=== PATIENT | female | born 1975 | race African-American/Black ===

== ENCOUNTER 2021-02-27 09:11 | Emergency (ER) | payer OTHER ==
[~2021-02-27] VITALS: Ht 167.6 cm; Wt 75.0 kg
[2021-02-27] MEDS ORDERED: ONDANSETRON HCL 4MG/2ML INJ IV STA (09:27)
[2021-02-27] MEDS ORDERED: KETOROLAC 30MG/ML VIAL IV STA (09:27)
[2021-02-27] MEDS ORDERED: SODIUM CHLORIDE 0.9% 1,000 ML IV ONE (09:30)
[2021-02-27 09:51] LABS: HEMOGLOBIN. 9.7 g/dL (12.0-16.0); MEAN CORPUSCULAR HEMOGLOBIN 24.4 pg (28.0-32.0); MEAN CORPUSCULAR VOLUME 77.9 fL (81.0-99.0); MEAN PLATELET VOLUME 7.4 fl (7.4-10.4); PLATELET 598 x1000/uL (130-400); RED BLOOD CELL COUNT 3.98 mill/uL (4.2-5.4)
[2021-02-27 09:56] LABS: CHLORIDE 103 mEq/L (98-107)
[2021-02-27 10:11] LABS: ETHANOL BLOOD < 10 mg/dL
[2021-02-27 10:31] LABS: HCG SCREEN NEGATIVE; NUCLEATED RED BLOOD CELLS 1 /100 WBC; PLATELET ESTIMATE INCREASED
[2021-02-27 12:00] VITALS: BP 146/62
[2021-02-27 12:16] LABS: CLARITY URINE CLOUDY (CLEAR); COLOR URINE DARK YELLOW (YELLOW); KETONES URINE 3+ (NEGATIVE); LEUKOCYTE ESTERASE URINE 1+ (NEGATIVE); NITRITE URINE POSITIVE (NEGATIVE); OCCULT BLOOD URINE TRACE (NEGATIVE); PH URINE 8.5 (4.5-8.0); PROTEIN URINE 1+ (NEGATIVE); SPECIFIC GRAVITY URINE 1.027 (1.005-1.030)
[2021-02-27 12:45] LABS: *BENZODIAZEPINES SCREEN URINE NEGATIVE (NEGATIVE); *COCAINE SCREEN URINE NEGATIVE (NEGATIVE)
[2021-02-27 12:46] LABS: *AMPHETAMINES SCREEN URINE NEGATIVE (NEGATIVE); *BARBITURATES SCREEN URINE NEGATIVE (NEGATIVE); METHADONE URINE SCREEN NEGATIVE (NEGATIVE); OPIATES URINE SCREEN NEGATIVE (NEGATIVE); PHENCYCLIDINE URINE SCREEN NEGATIVE (NEGATIVE)
[2021-02-27 12:51] LABS: CANNABINOID URINE SCREEN PRESUMTIVE POSITIVE (NEGATIVE)
[2021-02-27] MEDS ORDERED: CEPH500C2 MT (13:16)
[2021-02-27] MEDS ORDERED: OMEP40CA20 MT (13:16)
[2021-02-27] MEDS ORDERED: ONDA4TAB5 MT (13:17)
== END 2021-02-27 13:31 | disposition home or self-care (01) ==
LOC: ER 09:11
DX: N30.00 Acute cystitis without hematuria (principal); R03.0 Elevated blood-pressure reading, without diagnosis of hypertension; D64.9 Anemia, unspecified; Z87.448 Personal history of other diseases of urinary system
CPT/HCPCS: 36415; 74176; 80053; 80305; 80320; 81003; 83690; 84703; 85025; 87077; 87086; 87186; 96361; 96374; 96375; 99285; J1885; J2405; J7030; 99291; G0480